=== PATIENT | male | born 1935 | race Caucasian/White ===

== ENCOUNTER → 2017-04-22 | Outpatient (CLI) | payer OTHER, BC ==
[~2017-04-22] MED LIST: ACIPHEX 20 MG T20 MG PO; ACTOS 30 MG TAB30 MG PO; ANTIVERT25 MG PO; BUTRANS1 EAC1 TD; FLOMAX PO; FLOMAX0.4 MG PO; JALYN 0.5-0.41 EACH PO; MECLIZINE HCL12.5 MG PO; MORPHINE SULFAT15 M3 PO; NEXIUM20 MG PO; NORCO 7.5-3251 EACH PO; TAMSULOSIN HCL0.4 MG PO; VITAMIN D3400 UNI2 PO; VITAMIN D400 UNI1 PO
== END ==
LOC: NUC 10:57
DX: R10.9 Unspecified abdominal pain (principal); R11.0 Nausea

== ENCOUNTER → 2017-08-20 | Outpatient (CLI) | payer OTHER, BC ==
[~2017-08-20] VITALS: Ht 167.6 cm; Wt 68.0 kg
[~2017-08-20] MED LIST changes: +CYMBALTA30 MG PO
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
[2017-08-20 12:43] VITALS: BP 104/57
== END | disposition home or self-care (01) ==
LOC: PAIN 07:08
DX: M47.26 Other spondylosis with radiculopathy, lumbar region (principal); M48.061 Spinal stenosis, lumbar region without neurogenic claudication; M47.894 Other spondylosis, thoracic region; E11.9 Type 2 diabetes mellitus without complications; K21.9 Gastro-esophageal reflux disease without esophagitis; F32.89 Other specified depressive episodes; Z79.891 Long term (current) use of opiate analgesic; Z98.890 Other specified postprocedural states; Z87.81 Personal history of (healed) traumatic fracture; Z85.828 Personal history of other malignant neoplasm of skin; Z87.891 Personal history of nicotine dependence

== ENCOUNTER → 2017-12-09 | Outpatient (CLI) | payer OTHER, BC ==
[~2017-12-09] VITALS: Ht 165.1 cm; Wt 62.6 kg
[~2017-12-09] MED LIST changes: +CEFDINIR300 MG PO; +CIPROFLOXIN HC2.5 M1 OPHTHALMIC; +PROTONIX 20 MG20 M1 PO; +STOOL SOFTENER100 MG PO; +TYLENOL325 M1 PO
--- NOTE | ~2017-12-09 | S ---
[facility] [place] [place] [address] SURGICAL PATH RPT PROCEDURE Name: MITTALOMAYRA Arreguin Room #: REG [facility] M.R.#: [id number] Admission: 12/09/17 Date of : 33 Discharge: Report #: [id number] Path Case #: [id number] PATHOLOGY REPORT COLLECTION DATE: 12/09/2017 RECEIVED DATE: 12/09/2017 SUBMITTING PHYS: Dr. Jimmy Portillo OTHER PHYS: Dr. Cristóbal Davalos SPECIMEN(S) RECEIVED: A.Gastritis * * * * * * * * * * * * FINAL DIAGNOSIS: "Gastritis", biopsy: - Gastric mucosa with mild chronic inactive gastritis and reactive changes including focal intestinal metaplasia; no dysplasia seen. - Negative H. pylori immunohistochemical stain (block A1); control reacted appropriately. (CLW:kiara; 12/10/2017) PATHOLOGIST: Dinorah Horvath M.D. REPORT ELECTRONICALLY SIGNED BY: Dinorah Horvath M.D. DATE/TIME: 12/10/2017 15:19 * * * * * * * * * * * * GROSS PATHOLOGY: Received in formalin labeled "Omayra Mittal, BX of gastritis," are 4 segments of kruse soft tissue measuring 1.5 x 0.6 x 0.2 cm in aggregate dimensions and ranging from 0.3 to 0.9 cm in maximum dimension. The specimen is submitted entirely in cassette A1. (TSD; 12/09/2017) CLINICAL HISTORY: Pre-OP DX: Nausea, abdominal pain Post-OP DX: Gastritis INITIAL CPT CODE(S): A; 29411, 67723 Professional services performed by [facility] at [facility] [address] , [place] [address] Technical services performed by [facility] at [address] [place] [address]. [facility] [address] [place] [address] SURGICAL PATH RPT PROCEDURE Name: OMAYRA MITTAL Room #: REG CLI Lg.#: [id number] Admission: 12/09/17 Date of : 33 Discharge: Report #: [id number] Path Case #: [id number] [place] [id number] [address] PHONE: [phone] DIRECTOR: Flaco Billy M.D. * * * END OF REPORT * * *
--- NOTE | ~2017-12-09 | P ---
[facility] [place] [address] PROCEDURE REPORT Name: OMAYRA MITTAL [id number] Admission: 12/09/17 Attend Phys: Jimmy Gleason Discharge: Date of : 33 Report #: [id number] THIS REPORT FOR: //name// CC: Jimmy Davalos MD DATE OF SERVICE: 12/09/2017 PROCEDURE PERFORMED: Upper endoscopy with biopsies. HISTORY OF PRESENT ILLNESS: The patient is an 82-year-old male with complaints of nausea and abdominal pain. Overall, he is a fair historian. Most of the history was obtained through his today. It appears that he has symptoms when he eats on a regular basis. He denies any vomiting. He does report some early satiety. He has had previous upper endoscopies by my partner, Dr. Cabrera in the past showing gastritis. Biopsies in the past were negative for H. pylori. He denies any dysphagia. He has had some weight loss recently. Plan is for upper endoscopy. The patient has also had been taking Nexium on a daily basis, which was not helpful. DESCRIPTION OF PROCEDURE: The risks and benefits of the procedure were explained to the patient, those risks including but not limited to bleeding, perforation, the risk of sedation. He understood these risks and gave informed consent. Sedation was given using propofol per anesthesia. Next, using a standard [employer] upper endoscope, the scope was placed in the patient's mouth and advanced under direct vision through the esophagus, stomach and into the second portion of the duodenum. The larynx was normal in appearance. The esophagus was normal throughout. The GE junction was normal. There was a moderate diffuse atrophic appearing gastritis throughout his entire stomach. Biopsies were obtained. There was no evidence of ulcerations or bleeding. The pylorus was normal and patent. The duodenal bulb, first and second portion were all normal. The scope was then withdrawn and the procedure terminated. The patient tolerated the procedure well. IMPRESSION: 1. Diffuse gastritis. 2. Otherwise, normal upper endoscopy. RECOMMENDATIONS: 1. Await biopsy results. 2. I had a long discussion with the patient's today. Would recommend initially trying Zofran with meals as it appears he is having more nausea, although it may be pain as well. If there is no improvement and biopsies are negative, we discussed proceeding with an ultrasound of the abdomen with mesenteric Dopplers to rule out the possibility of mesenteric stenosis. [address] [address] PROCEDURE REPORT Name: OMAYRA MITTAL Room #: REG CLI [facility].#: [id number] Admission: 12/09/17 Attend Phys: Jimmy Gleason Discharge: Date of : 33 Report #: [id number] Thank you for allowing me to participate in his care. <ELECTRONICALLY SIGNED> By: Jimmy Portillo MD 12/11/17 0808 1144 1823 Jimmy Portillo, /rivera
== END | disposition home or self-care (01) ==
LOC: GI 09:13
DX: K29.40 Chronic atrophic gastritis without bleeding (principal); E11.9 Type 2 diabetes mellitus without complications; F32.89 Other specified depressive episodes; Z87.891 Personal history of nicotine dependence; Z85.828 Personal history of other malignant neoplasm of skin; Z98.41 Cataract extraction status, right eye; Z98.42 Cataract extraction status, left eye; Z96.1 Presence of intraocular lens; Z98.890 Other specified postprocedural states; Z90.49 Acquired absence of other specified parts of digestive tract; Z79.891 Long term (current) use of opiate analgesic
CPT/HCPCS: 62110; 62900

== ENCOUNTER 2018-01-04 16:29 | Inpatient (IN) | payer OTHER, BC ==
[~2018-01-04] VITALS: Ht 175.3 cm; Wt 60.7 kg
--- NOTE | ~2018-01-04 | EKG ---
[place] [address] [facility] [place] [address] ELECTROCARDIOGRAM REPORT Name: MITTALOMAYRA Arreguin Room #: 444-P ADM IN M.R.#: [id number] Admission: 01/04/18 Attend Phys: Cristóbal Davalos MD Discharge: Date of : 33 Report #: [id number] THIS REPORT FOR: //name// [facility] ED Test Date: 2018-01-04 Test Time: 17:27:19 Pat Name: OMAYRA MITTAL Department: Room: 444 Gender: M Health Insurance Assessor: MZOOK : 1935 Requested By: Marjorie Tee Order Number: [id number] MD: Rell Ennis Measurements Intervals [place] Rate: 83 P: 16 RI: 153 QRS: -30 QRSD: 99 T: 8 QT: 388 QTc: 456 Interpretive Statements Sinus rhythm Left axis deviation Right bundle branch block Compared to ECG 05/22/2014 09:45:51 Left-axis deviation now present Electronically Signed On 01-05-2018 7:18:49 EQUIPMENT MAINTENANCE ENGINEER by Rell Ennis [email or web address] <ELECTRONICALLY SIGNED> By: Rell Ennis MD, [facility] 01/05/18 0718 172 172 Rell Ennis MD, [facility] /EPI
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
--- NOTE | ~2018-01-04 | EKG ---
[place] [address] [facility] [place] [address] ELECTROCARDIOGRAM REPORT Name: OMAYRA MITTAL Room #: 444-P ADM IN M.R.#: [id number] Admission: 01/04/18 Attend Phys: Cristóbal Davalos MD Discharge: Date of : 33 Report #: [id number] THIS REPORT FOR: //name// [facility] ED Test Date: 2018-01-04 Test Time: 19:01:02 Pat Name: OMAYRA MITTAL Department: Room: 444 Gender: M Ice Rink Attendant: MZOOK : 1935 Requested By: Marjorie Tee Order Number: [id number] MD: Rell Ennis Measurements Intervals [place] Rate: 80 P: 0 [place]: 152 QRS: -45 QRSD: 138 T: -1 QT: 396 QTc: 457 Interpretive Statements Sinus rhythm Leftward axis Right bundle branch block Compared to ECG 05/22/2014 09:45:51 No significant changes Electronically Signed On 01-05-2018 7:21:13 SYNCHRONIZER by Rell Ennis [email or web address] <ELECTRONICALLY SIGNED> By: Rell Ennis MD, [facility] 01/05/18 0721 190 00 Rell Ennis MD, [facility] /EPI
[~2018-01-04 16:29] MED LIST changes: -CEFDINIR300 MG PO; -CIPROFLOXIN HC2.5 M1 OPHTHALMIC; -PROTONIX 20 MG20 M1 PO; -TYLENOL325 M1 PO
[2018-01-04 16:30] VITALS: BP 132/54
[2018-01-04 17:59] LABS: HEMATOCRIT 39.3 % (42.0-52.0); HEMOGLOBIN 13.5 gm/dL (14.0-18.0); MCH 34.9 pg (26.0-34.0); MCHC 34.3 g/dL (28.0-37.0); MCV 101.6 fL (80.0-100.0); PLATELET COUNT 224 thou/uL (150-400); RBC 3.86 mil/uL (4.50-6.00); RDW 12.6 % (10.5-14.5); WBC 25.8 thou/uL (4.0-11.0)
[2018-01-04 18:09] LABS: CALCIUM 10.4 mg/dL (8.5-10.1); CREATININE 0.8 mg/dL (0.7-1.3); POTASSIUM 4.6 mmol/L (3.5-5.1)
[2018-01-04 18:16] LABS: ABSOLUTE NEUTROPHILS 22.4 thou/uL (1.4-8.2)
[2018-01-04 18:33] LABS: URINE BILIRUBIN 1+ (Negative); URINE BLOOD 3+ (Negative); URINE CLARITY CLEAR; URINE COLOR YELLOW; URINE GLUCOSE-RANDOM* TRACE (Negative); URINE KETONES 2+ (Negative); URINE LEUKOCYTES-REFLEX NEGATIVE (Negative); URINE NITRITE-REFLEX NEGATIVE (Negative); URINE PROTEIN (DIPSTICK) TRACE (Negative); URINE SPECIFIC GRAVITY 1.025 (1.005-1.035); URINE UROBILINOGEN 0.2 E.U./dl (0.2-1.0)
[2018-01-04 18:39] LABS: ICTOTEST (BILI CONFIRMATORY) Negative (Negative)
[2018-01-04 18:48] LABS: BACTERIA-REFLEX None Seen /HPF (None Seen); CASTS None Seen /LPF (None Seen); SQUAMOUS 0-3 Few /LPF (0-3)
[2018-01-04 18:49] LABS: CRYSTALS None Seen /LPF (None Seen); MUCUS 4-6 Moderate strn/LPF (None Seen); URINE WBC-REFLEX None Seen /HPF (0-5)
[2018-01-05 00:28] VITALS: BP 114/64
[2018-01-05 00:55] VITALS: BP 112/45
[2018-01-05 04:55] VITALS: BP 95/49
[2018-01-05 07:54] VITALS: BP 107/44
[2018-01-05 08:17] LABS: HEMATOCRIT 32.3 % (42.0-52.0); HEMOGLOBIN 10.9 gm/dL (14.0-18.0); MCH 34.5 pg (26.0-34.0); MCHC 33.8 g/dL (28.0-37.0); RBC 3.16 mil/uL (4.50-6.00); RDW 12.3 % (10.5-14.5); WBC 16.9 thou/uL (4.0-11.0)
[2018-01-05 08:29] LABS: CALCIUM 9.1 mg/dL (8.5-10.1); CREATININE 0.7 mg/dL (0.7-1.3)
[2018-01-05 08:31] LABS: POTASSIUM 3.2 mmol/L (3.5-5.1)
[2018-01-05 15:54] VITALS: BP 103/54
[2018-01-05 21:06] VITALS: BP 107/52
[2018-01-06 04:00] VITALS: BP 135/57
[2018-01-06] MEDS ORDERED: CIPROFLOXIN HC2.5 M1 OPHTHALMIC (07:39)
[2018-01-06] MEDS ORDERED: CEFDINIR300 MG PO (07:40)
[2018-01-06 07:57] LABS: HEMATOCRIT 31.1 % (42.0-52.0); HEMOGLOBIN 10.6 gm/dL (14.0-18.0); MCHC 34.2 g/dL (28.0-37.0); MCV 102.5 fL (80.0-100.0); RBC 3.04 mil/uL (4.50-6.00); RDW 12.7 % (10.5-14.5); WBC 11.3 thou/uL (4.0-11.0)
[2018-01-06 08:00] VITALS: BP 113/48
[2018-01-06 08:05] LABS: CALCIUM 8.3 mg/dL (8.5-10.1); CREATININE 0.7 mg/dL (0.7-1.3); POTASSIUM 3.4 mmol/L (3.5-5.1)
[2018-01-06 15:28] VITALS: BP 113/48
[2018-01-06 16:44] VITALS: BP 132/71
[2018-01-06 22:48] VITALS: BP 127/56
[2018-01-07 04:42] VITALS: BP 130/60
[2018-01-07 08:00] VITALS: BP 119/94
[2018-01-07] MEDS ORDERED: CEFDINIR300 MG PO (13:01)
[2018-01-07 15:56] VITALS: BP 149/59
[2018-01-08 04:14] VITALS: BP 154/63
[2018-01-08 08:00] VITALS: BP 160/52
[2018-01-08 10:07] LABS: HEMATOCRIT 34.4 % (42.0-52.0); HEMOGLOBIN 11.7 gm/dL (14.0-18.0); MCH 34.7 pg (26.0-34.0); MCHC 33.9 g/dL (28.0-37.0); MCV 102.4 fL (80.0-100.0); RBC 3.36 mil/uL (4.50-6.00); RDW 12.5 % (10.5-14.5); WBC 9.1 thou/uL (4.0-11.0)
[2018-01-08 10:33] LABS: CALCIUM 8.9 mg/dL (8.5-10.1); CREATININE 0.7 mg/dL (0.7-1.3); POTASSIUM 3.7 mmol/L (3.5-5.1)
== END 2018-01-08 17:35 | DRG 871 ==
LOC: ER 16:29 → EROBS 20:14 → 4S 20:14
PROVIDERS: Emergency Medicine; Family Medicine
DX: A41.9 Sepsis, unspecified organism (principal); G92 Toxic encephalopathy; N17.9 Acute kidney failure, unspecified; N39.0 Urinary tract infection, site not specified; M62.82 Rhabdomyolysis; E11.9 Type 2 diabetes mellitus without complications; K21.9 Gastro-esophageal reflux disease without esophagitis; F32.9 Major depressive disorder, single episode, unspecified; E86.0 Dehydration; R33.9 Retention of urine, unspecified; G89.29 Other chronic pain; D72.829 Elevated white blood cell count, unspecified; F03.90 Unspecified dementia, unspecified severity, without behavioral disturbance, psychotic disturbance, mood disturbance, and anxiety; Z87.81 Personal history of (healed) traumatic fracture; Z79.899 Other long term (current) drug therapy; Z98.42 Cataract extraction status, left eye; Z98.41 Cataract extraction status, right eye; Z90.49 Acquired absence of other specified parts of digestive tract; W18.39XA Other fall on same level, initial encounter; Y93.89 Activity, other specified; Y92.89 Other specified places as the place of occurrence of the external cause; Y99.8 Other external cause status
CPT/HCPCS: 10100

== ENCOUNTER 2018-08-19 14:54 | Emergency (ER) | payer OTHER, BC ==
[~2018-08-19] VITALS: Ht 167.6 cm; Wt 75.8 kg
--- NOTE | ~2018-08-19 | EKG ---
[address] [address] ELECTROCARDIOGRAM REPORT Name: MITTALOMAYRA LOPEZ Room #: [facility] [id number] Admission: 08/19/18 Attend Phys: Discharge: 08/19/18 Date of : 33 Report #: [id number] THIS REPORT FOR: //name// [facility] ED Test Date: 2018-08-19 Test Time: 16:07:41 Pat Name: OMAYRA MITTAL Department: Room: Gender: M Shaper Operator: EH : 1935 Requested By: Baudilio Qiu Order Number: [id number] MD: Charles Garcia Measurements Intervals [place] Rate: 68 P: 34 [place]: 162 QRS: -58 QRSD: 136 T: 11 QT: 438 QTc: 466 Interpretive Statements Sinus rhythm Multiple premature complexes, vent & supraven RBBB and LAFB Compared to ECG 01/04/2018 19:01:02 Left anterior fascicular block now present Left-axis deviation no longer present Electronically Signed On 08-20-2018 8:19:10 CDT by Charles Garcia [email or web address] <ELECTRONICALLY SIGNED> By: Charles Garcia MD 08/20/18 0819 1607 1607 Charles Garcia MD /EPI
[~2018-08-19 14:54] MED LIST changes: +CEFDINIR300 MG PO; +CIPROFLOXIN HC2.5 M1 OPHTHALMIC
[2018-08-19] MEDS ORDERED: TYLENOL325 M1 PO (15:14)
[2018-08-19 15:20] LABS: ABSOLUTE NEUTROPHILS 11.4 thou/uL (1.4-8.2); BASOPHILS 0.3 % (0.0-2.0); HEMATOCRIT 40.4 % (42.0-52.0); HEMOGLOBIN 13.9 gm/dL (14.0-18.0); LYMPHOCYTES 13.7 % (24.0-44.0); MCH 35.8 pg (26.0-34.0); MCHC 34.3 g/dL (28.0-37.0); MCV 104.2 fL (80.0-100.0); MONOCYTES 7.8 % (1.0-8.0); PLATELET COUNT 275 thou/uL (150-400); POLYS 78.2 % (36.0-66.0); RBC 3.87 mil/uL (4.50-6.00); RDW 12.9 % (10.5-14.5); WBC 14.5 thou/uL (4.0-11.0)
[2018-08-19 16:28] LABS: CALCIUM 9.9 mg/dL (8.5-10.1); POTASSIUM 3.9 mmol/L (3.5-5.1)
[2018-08-19 16:33] LABS: ALBUMIN 3.9 g/dL (3.4-5.0); TOTAL BILIRUBIN 0.7 mg/dL (<0.1-1.0); TOTAL PROTEIN 7.8 g/dL (6.4-8.2)
[2018-08-19 17:59] LABS: URINE BILIRUBIN NEGATIVE (Negative); URINE BLOOD NEGATIVE (Negative); URINE CLARITY CLEAR; URINE COLOR YELLOW; URINE GLUCOSE-RANDOM* NEGATIVE (Negative); URINE KETONES 1+ (Negative); URINE LEUKOCYTES-REFLEX NEGATIVE (Negative); URINE NITRITE-REFLEX NEGATIVE (Negative); URINE PROTEIN (DIPSTICK) NEGATIVE (Negative); URINE SPECIFIC GRAVITY <= 1.005 (1.005-1.035); URINE UROBILINOGEN 0.2 E.U./dl (0.2-1.0)
[2018-08-19] MEDS ORDERED: PROTONIX 20 MG20 M1 PO (18:37)
== END 2018-08-19 19:09 ==
LOC: ER 14:54
PROVIDERS: Emergency Medicine
DX: R10.13 Epigastric pain (principal); R05 Cough; E11.9 Type 2 diabetes mellitus without complications; Z87.440 Personal history of urinary (tract) infections; Z90.49 Acquired absence of other specified parts of digestive tract

== ENCOUNTER 2019-04-07 16:47 | Inpatient (IN) | payer OTHER, BC ==
[~2019-04-07] VITALS: Ht 165.1 cm; Wt 66.8 kg
[~2019-04-07 16:47] MED LIST changes: +PROTONIX 20 MG20 M1 PO; +TYLENOL325 M1 PO
[2019-04-07 17:32] LABS: URINE BILIRUBIN NEGATIVE (Negative); URINE BLOOD NEGATIVE (Negative); URINE CLARITY CLEAR; URINE COLOR YELLOW; URINE GLUCOSE-RANDOM* TRACE (Negative); URINE KETONES NEGATIVE (Negative); URINE LEUKOCYTES-REFLEX NEGATIVE (Negative); URINE NITRITE-REFLEX NEGATIVE (Negative); URINE PROTEIN (DIPSTICK) NEGATIVE (Negative); URINE SPECIFIC GRAVITY 1.025 (1.005-1.035); URINE UROBILINOGEN 0.2 E.U./dl (0.2-1.0)
[2019-04-07 17:39] LABS: AMP/METHAMP Negative (Negative); BARBITURATES Negative (Negative); BENZODIAZEPINES Negative (Negative); COCAINE Negative (Negative); METHADONE Negative (Negative); OPIATES Negative (Negative); PCP Negative (Negative)
[2019-04-07 17:44] LABS: ABSOLUTE NEUTROPHILS 9.3 thou/uL (1.4-8.2); BASOPHILS 0.4 % (0.0-2.0); EOSINOPHILS 0.4 % (0.0-3.0); HEMATOCRIT 39.6 % (42.0-52.0); HEMOGLOBIN 13.1 gm/dL (14.0-18.0); LYMPHOCYTES 18.5 % (24.0-44.0); MCH 34.4 pg (26.0-34.0); MCHC 33.2 g/dL (28.0-37.0); MCV 103.7 fL (80.0-100.0); PLATELET COUNT 252 thou/uL (150-400); POLYS 73.7 % (36.0-66.0); RBC 3.81 mil/uL (4.50-6.00); RDW 13.4 % (10.5-14.5); WBC 12.6 thou/uL (4.0-11.0)
[2019-04-07 17:58] LABS: APTT 25.4 Seconds (24.5-32.8); INR 1.1
[2019-04-07 18:46] LABS: ANION GAP 6 mmol/L (7-16); BUN 23 mg/dL (7-18); CALCIUM 9.5 mg/dL (8.5-10.1); CHLORIDE 103 mmol/L (98-107); CO2 30 mmol/L (21-32); CREATININE 0.7 mg/dL (0.7-1.3); GLUCOSE 111 mg/dL (74-106); POTASSIUM 3.8 mmol/L (3.5-5.1); SODIUM 139 mmol/L (136-145); TROPONIN-I <0.06 ng/mL (<0.06)
[2019-04-07 22:49] VITALS: BP 116/63
[2019-04-07 23:00] VITALS: BP 124/52
[2019-04-07 23:28] VITALS: BP 145/54
[2019-04-08 05:19] VITALS: BP 141/59
[2019-04-08 08:17] LABS: HEMATOCRIT 37.4 % (42.0-52.0); HEMOGLOBIN 12.5 gm/dL (14.0-18.0); MCH 34.8 pg (26.0-34.0); MCHC 33.5 g/dL (28.0-37.0); RBC 3.6 mil/uL (4.50-6.00); RDW 13.3 % (10.5-14.5); WBC 11.1 thou/uL (4.0-11.0)
[2019-04-08 08:27] LABS: ALBUMIN 3.5 g/dL (3.4-5.0); CALCIUM 8.5 mg/dL (8.5-10.1); CREATININE 0.6 mg/dL (0.7-1.3); POTASSIUM 3.6 mmol/L (3.5-5.1); TOTAL BILIRUBIN 1.7 mg/dL (<0.1-1.0); TOTAL PROTEIN 6.8 g/dL (6.4-8.2)
--- NOTE | 2019-04-08 09:31 | EKG ---
[place] [address] [facility] [place] [address] ELECTROCARDIOGRAM REPORT Name: SUREKHA MITTALCARLO ARREDONDO Room #: 219-P ADM IN M.R.#: [id number] ������������������ Admission: 04/07/19 ������������������ Attend Phys: Cristóbal Davalos MD Discharge: ������������������ Date of : 33 Report #: [id number] ����������������������������������������������������������������� [id number] THIS REPORT FOR: //name// [facility] ED Test Date: 2019-04-07 Test Time: 18:01:47 Pat Name: OMAYRA MITTAL Department: Room: 219 Gender: M Teacher Of The Sight Impaired: LOU : 1935 Requested By: Baudilio Qiu Order Number: [id number] MD: Rell Ennis Measurements Intervals [place] Rate: 74 P: 0 [place]: 150 QRS: -78 QRSD: 136 T: 5 QT: 421 QTc: 467 Interpretive Statements Sinus rhythm RBBB and LAFB Compared to ECG 08/19/2018 16:07:41 Premature ventricular complexes are no longer present Electronically Signed On 04-08-2019 9:31:05 CDT by Rell Ennis [email or web address] ��������������������������������������������� <ELECTRONICALLY SIGNED> ���������������������������������������� By: Rell Ennis MD, [facility] ��������������������������������������������� 04/08/19 0931 180 00 Rell Ennis MD, [facility] /EPI
--- NOTE | 2019-04-08 14:16 | 2DMMODE ---
[facility] [place] [address] 2 D/M-MODE ECHOCARDIOGRAM Name: MITTAL,OMAYRACARLO ARREDONDO Room #: 219-P ADM IN M.R.#: [id number] ������������� Admission: 04/07/19 ������������� Attend Phys: Cristóbal Davalos, Discharge: ��� ������������� ��� Date of : 31 Date of Service: 04/08/19 1416 �� Report #: [id number] �������� ��������������������������������������������[id number] THIS REPORT FOR: //name// APPROVED REPORT Study performed: 04/08/2019 12:58:11 EXAM: Comprehensive 2D, Doppler, and color-flow Echocardiogram Patient Location: Bedside Room #: 219 Status: routine BSA: 1.73 HR: 76 bpm BP: 141/59 mmHg Rhythm: NSR Other Information Study Quality: Adequate Indications Altered mental status. Echo Enhancing Agent Indication: Rule out Shunt Agent(s) / Amount(s) Used: Agitated Saline 6 cc 2D Dimensions RVDd: 32.49 mm IVSd: 10.30 (7-11mm) LVOT Diam: 21.42 (18-24mm) LVDd: 41.48 mm PWd: 9.93 (7-11mm) Ascending Ao: 35.15 (22-36mm) LVDs: 25.65 (25-40mm) Aortic Root: 37.17 mm Volumes Left Atrial Volume (Systole) Single Plane 4CH: 52.96 mL Single Plane 2CH: 55.98 mL LA ESV Index: 35.00 mL/m2 Aortic Valve AoV Peak Bassem.: 1.65 m/s AO Peak Gr.: 10.84 mmHg LVOT Max P.46 mmHg LVOT Max V: 1.06 m/s MIMA Vmax: 2.31 cm2 [facility] [place] [address] [place] [address] 2 D/M-MODE ECHOCARDIOGRAM Name: OMAYRA MITTAL Room #: 219-P [facility] IN ..#: [id number] ������������� Admission: 04/07/19 ������������� Attend Phys: Cristóbal Davalos, Discharge: ��� ������������� ��� Date of : 31 Date of Service: 04/08/19 1416 �� Report #: [id number] �������� ��������������������������������������������[id number] Mitral Valve E/A Ratio: 0.6 MV Decel. Time: 237.11 ms MV E Max Bassem.: 0.82 m/s MV A Bassem.: 1.33 m/s MV PHT: 68.76 ms IVRT: 72.66 ms Pulmonary Valve PV Peak Bassem.: 0.96 m/s PV Peak Gr.: 3.69 mmHg Pulmonary Vein P Vein S: 0.62 m/s P Vein A: 0.34 m/s P Vein D: 0.33 m/s P Vein A Dur.: 107.3 msec P Vein S/D Ratio: 1.88 Tricuspid Valve TR Peak Bassem.: 1.84 m/s TR Peak Gr.: 13.48 mmHg Left Ventricle The left ventricle is normal size. There is normal LV segmental wall motion. There is normal left ventricular wall thickness. Left ventricular systolic function is normal. LVEF is 60-65%. Mild diastolic dysfunction is present (impaired relaxation pattern). Right Ventricle The right ventricle is normal size. The right ventricular systolic function is normal. Atria Left atrium is at the upper limits of normal. Positive bubble study for PFO/ASD. Contrast bubble injection showed right to left shunting. The right atrium size is normal. Aortic Valve Aortic valve is trileaflet, mildly thickened and calcified. Mild aortic regurgitation. There is no aortic valvular stenosis. Mitral Valve Mitral valve leaflets are mildly calcified. There is no mitral valve regurgitation noted. No evidence of mitral valve stenosis. Tricuspid Valve The tricuspid valve is normal in structure. Trace tricuspid [facility] [address] [place] [address] 2 D/M-MODE ECHOCARDIOGRAM Name: OMAYRA MITTAL MARIA ELENA Room #: 219-P [facility] IN [facility].#: [id number] ������������� Admission: 04/07/19 ������������� Attend Phys: Cristóbal Davalos, Discharge: ��� ������������� ��� Date of : 31 Date of Service: 04/08/19 1416 �� Report #: [id number] �������� ��������������������������������������������[id number] regurgitation. Estimated PAP is 15mmHg. Pulmonic Valve The pulmonary valve is normal in structure. Trace pulmonic regurgitation. Great Vessels The aortic root is normal in size. The ascending aorta is normal in size. IVC is normal in size and collapses >50% with inspiration. Pericardium There is no pericardial effusion. <Conclusion> The left ventricle is normal size. LVEF is 60-65%. Left atrium is at the upper limits of normal. The right atrium size is normal. Aortic valve is trileaflet, mildly thickened and calcified. Mild aortic regurgitation. Mitral valve leaflets are mildly calcified. The tricuspid valve is normal in structure. Trace tricuspid regurgitation. Estimated PAP is 15mmHg. There is no pericardial effusion. ��������������������������������������������� <ELECTRONICALLY SIGNED> ���������������������������������������� By: Isidro Bolaños MD ��������������������������������������������� 04/08/19 1416 1416 1416 Isidro Bolaños MD /INF
[2019-04-08 20:28] VITALS: BP 131/53
[2019-04-09 03:16] VITALS: BP 151/65
[2019-04-09 12:37] VITALS: BP 127/65
[2019-04-09 16:26] VITALS: BP 131/73
--- NOTE | 2019-04-09 16:31 | HC ---
[facility] [place] [address] CONSULTATION Name: OMAYRA MITTAL Room #: 219-P ADM IN M.R.#: [id number] Admission: 04/07/19 ������������������ Attend Phys: Cristóbal Davalos MD Discharge: ������������������ Date of : 33 Report #: [id number] THIS REPORT FOR: //name// CC: Cristóbal Davalos HISTORY OF PRESENT ILLNESS: The patient is an 84-year-old male who was brought to the hospital because according to his , he seemed more confused than usual. When he came to the Emergency Room, he seemed unable to use his right hand. When he went to reach out for something, it seemed to just be floating in the air. The patient was supposed to see the nurse practitioner, but she referred the patient to the Emergency Room for stroke workup. His has also noticed that he seems to be having some difficulty with word finding for the past week. His tells me he does not take aspirin as this bothers his stomach. PAST MEDICAL HISTORY: Diabetes. PAST SURGICAL HISTORY: Arthroscopy, bilateral cataracts with lens implants, tonsillectomy, right rotator cuff repair, vertebroplasty removal of melanoma, cholecystectomy. MEDICATIONS: At home Actos 15 mg at bedtime, Tylenol as needed for pain. ALLERGIES: None. VITAL SIGNS: Temperature 36.5, pulse rate 76, respiratory rate 16, blood pressure 141/59, bedside pulse oximetry 94% on room air. LABORATORY DATA: Hematology: White blood cell count 11.1, hemoglobin 12.5, hematocrit 37.4, MCV 104, platelet count 227,000. Urinalysis unremarkable. Chemistry: Sodium 139, potassium 3.6, chloride 105, carbon dioxide 28, BUN 12, creatinine 0.6, GFR 128, glucose 148, calcium 8.5. Liver functions unremarkable. Ammonia level 25. TSH 1.356. Drug screen negative. IMAGING: CT scan of the head demonstrates no acute intracranial process. MRI of the head demonstrates an acute infarct in the left postcentral gyrus and in the left paramedian occipital lobe. The patient also has diffuse periventricular white matter disease. With these 2 acute strokes, hemosiderin and blood products were noted. NEUROLOGIC: Cranial nerves 2-12 are grossly intact. Motor exam demonstrates symmetrical strength in all 4 extremities with tone and bulk normal. Reflexes are trace. Plantar responses are flexor bilaterally. Coordination reveals no evidence of dysmetria. Sensory exam, double simultaneous stimulation was questionable. The patient at first appeared to have extinction in the right upper extremity, but this was not consistent. [address] [address] CONSULTATION Name: OMAYRA MITTAL Room #: 219-P [facility] IN .R.#: [id number] Admission: 04/07/19 ������������������ Attend Phys: Cristóbal Davalos MD Discharge: ������������������ Date of : 33 Report #: [id number] IMPRESSION: This patient has had a stroke, has had two strokes involving the left hemisphere. The carotid ultrasound is unremarkable. I have ordered an MRA of the head and neck. He has an echocardiogram pending. I have also ordered a B12. His MCV is elevated. The patient will need physical and occupational therapy as well. The patient did have an electroencephalogram. There is no evidence of seizure activity. Eventually, this patient will need to be on some type of antiplatelet therapy unless there is something significant on the echocardiogram. Perhaps in a week or so, he could begin a trial of Plavix. His tells me he cannot take aspirin. I thank you for your kind referral of the patient. We will continue to follow him with you. ��������������������������������������������� <ELECTRONICALLY SIGNED> ���������������������������������������� By: Danielle Antunez DO ��������������������������������������������� 04/09/19 1631 1133 [id number] Danielle Antunez DO /nt
--- NOTE | 2019-04-09 16:32 | EEG ---
[facility] [place] [address] ELECTROENCEPHALOGRAM Name: OMAYRA MITTAL Room #: 219-P ADM IN M.R.#: [id number] ������������������ Admission: 04/07/19 ������������������ Attend Phys: Cristóbal Davalos MD Discharge: ������������������ Date of : 33 Report #: [id number] ����������������������������������������������������������������� [id number] THIS REPORT FOR: //name// CC: Cristóbal Davalos HISTORY: The patient is an 84-year-old male with altered consciousness and confusion. An EEG is requested for further evaluation. DESCRIPTION: The awake record consists of poorly formed 8 Hz posterior dominant rhythm, which attenuates with eye opening. Beta activity in the form of low amplitude 20-25 cycles per second activity was seen during the recording and predominant over the frontocentral head regions. Stage I sleep was characterized by attenuation of the background record. Photic stimulation was not activating. No focal abnormalities or epileptiform discharges were noted. IMPRESSION: This is essentially normal adult awake to stage I sleep record. No focal abnormalities or epileptiform discharges are noted. ���������������������������������������� <ELECTRONICALLY SIGNED> ���������������������������������������� By: Danielle Antunez DO ��������������������������������������������� 04/09/19 1632 [id number] Danielle Antunez DO /nt
[2019-04-09 17:13] LABS: CHOLESTEROL 155 mg/dL (<200); HDL CHOLESTEROL 44 mg/dL (>40); LDL CHOLESTEROL 95 mg/dL (<100); TC:HDL 3.5 Ratio (Not establshd); TRIGLYCERIDE 83 mg/dL (<150); VLDL 17 mg/dL (<40)
[2019-04-09 20:12] VITALS: BP 131/62
[2019-04-10 05:00] VITALS: BP 136/62
[2019-04-10 07:37] VITALS: BP 126/57
[2019-04-10 11:41] VITALS: BP 114/62
[2019-04-10 20:19] VITALS: BP 130/69
[2019-04-11 05:33] VITALS: BP 144/62
[2019-04-11 08:25] VITALS: BP 130/67
[2019-04-11 12:51] VITALS: BP 119/63
[2019-04-11] MEDS ORDERED: ATORVASTATIN CA40 MG PO (15:45)
[2019-04-11] MEDS ORDERED: ASA5UEC PO (15:45)
[2019-04-11] MEDS ORDERED: SERTRALINE HCL50 MG PO (15:46)
[2019-04-11] MEDS ORDERED: LIDOPATCH1 EACH TRANSDERM (15:46)
[2019-04-12] MEDS ORDERED: PIOGLITAZONE15 MG (10:06)
== END 2019-04-11 16:42 | DRG 64 ==
LOC: ER 16:47 → EROBS 19:21 → 2N 19:21
PROVIDERS: Emergency Medicine; Psychiatry & Neurology Neurology; ADMIT Family Medicine
DX: I63.9 Cerebral infarction, unspecified (principal); G93.41 Metabolic encephalopathy; I10 Essential (primary) hypertension; E11.65 Type 2 diabetes mellitus with hyperglycemia; Z90.49 Acquired absence of other specified parts of digestive tract; Z79.2 Long term (current) use of antibiotics; Z79.899 Other long term (current) drug therapy
CPT/HCPCS: 10081

== ENCOUNTER 2019-04-11 15:11 | Inpatient (IN) | payer OTHER, BC ==
[~2019-04-11] VITALS: Ht 167.6 cm; Wt 66.2 kg
[2019-04-11] MEDS ORDERED: ATORVASTATIN CA40 MG PO (15:45)
[2019-04-11] MEDS ORDERED: ASA5UEC PO (15:45)
[2019-04-11] MEDS ORDERED: SERTRALINE HCL50 MG PO (15:46)
[2019-04-11] MEDS ORDERED: LIDOPATCH1 EACH TRANSDERM (15:46)
[2019-04-11 17:00] VITALS: BP 126/59
--- NOTE | 2019-04-11 18:38 | NUR ---
REPORT RECEIVED FROM NURSE AT 1500 AND PATIENT BROUGHT TO UNIT AT 1700. PATIENT IS A&O TO PERSON AND PLACE AND VITAL SIGNS ARE STABLE. FAMILY IS AT THE BEDSIDE. ADMISSION ASSESSMENT PERFORMED, ADMISSION PAPERWORK ON CHART NEEDS TO BE SIGNED. BLOOD GLUCOSE OBTAINED. ORDERS FOR PAIN MEDICAITON OBTAINED. PATIENT ORIENTED TO THE UNIT. FALL PRECAUTIONS IN PLACE AND NURSING WILL CONTINUE TO MONITOR PATIENT.
[2019-04-11 19:29] VITALS: BP 115/50
--- NOTE | 2019-04-12 00:59 | NUR ---
PT ALERT AND ORIENTED X 2. SITS UP IN BED FREQUENTLY SETTING OFF ALARM. USES URINAL SITTING ON SIDE OF BED. REQUIRED COMPLETE LINEN CHANGE, UNSURE IF INCONT OR SPILLED URINAL. PT HAS DENIED PAIN SO FAR TONIGHT. BED ALARM ON FOR SAFETY. PT CHECKED ON HOURLY ROUNDS.
[2019-04-12 06:12] LABS: HEMATOCRIT 37.8 % (42.0-52.0); HEMOGLOBIN 12.7 gm/dL (14.0-18.0); MCH 35.1 pg (26.0-34.0); MCHC 33.5 g/dL (28.0-37.0); MCV 104.6 fL (80.0-100.0); RBC 3.61 mil/uL (4.50-6.00); RDW 13.2 % (10.5-14.5); WBC 14.1 thou/uL (4.0-11.0)
[2019-04-12 06:13] LABS: CALCIUM 9.1 mg/dL (8.5-10.1); CREATININE 0.8 mg/dL (0.7-1.3); POTASSIUM 3.9 mmol/L (3.5-5.1)
[2019-04-12 07:30] VITALS: BP 122/45
--- NOTE | 2019-04-12 09:58 | NUR ---
ASSUMED PT CARE AT 0700. VSS ON RA. PT ALERT AND ORIENTED X3 FORGETFUL. REPORTS HE DIDN'T SLEEP AT ALL LAST NIGHT. WBC 14.1. NIGHT NURSE SAID PT URINATED FREQUENTLY LAST NIGHT. UA CONCENTRATED. DR. OLIVARES CAME TO SEE PT THIS AM. ORDERED FOR TRAZODONE, UA, VOLATERENE GEL FOR BACK PAIN. OFFERED SUPPORTIVE CARE. ENCOURAGED PT TO VOICE HIS NEEDS. PT C/O BACK PAIN. REASSESSMENT PER CHART. GIVE AM AND PRN HYDROCODONE BEFORE THERAPY. PT SAID PT CAN BE UP WITH MOD ASSIST PIVOT TO CHAIR<>BED. FALL PRECAUTION IN PLACE. CALL LIGHT WITHIN REACH. HIS GOALS TODAY ARE BATH, WALKING, AND SHAVING.CHECK FREQUENTLY FOR NEEDS AND SAFETY. PT IS TIRED, RESTING IN BED UNTIL NEXT THERAPY. WILL CONTINUE TO MONITOR.
[2019-04-12] MEDS ORDERED: PIOGLITAZONE15 MG (10:06)
[2019-04-12 11:42] LABS: URINE BILIRUBIN NEGATIVE (Negative); URINE BLOOD TRACE (Negative); URINE CLARITY CLEAR; URINE COLOR YELLOW; URINE GLUCOSE-RANDOM* 1+ (Negative); URINE KETONES NEGATIVE (Negative); URINE LEUKOCYTES-REFLEX NEGATIVE (Negative); URINE NITRITE-REFLEX NEGATIVE (Negative); URINE PROTEIN (DIPSTICK) NEGATIVE (Negative); URINE SPECIFIC GRAVITY 1.025 (1.005-1.035); URINE UROBILINOGEN 0.2 E.U./dl (0.2-1.0)
--- NOTE | 2019-04-12 12:38 | NUR ---
team meeting, recommendation: doors closed when up in wheel chair on unite. re team, found out if family can bring own wheel chair in for carol to work with therapy if family able. will cont following as needed for dc needs.
[2019-04-12 19:20] VITALS: BP 128/50
--- NOTE | 2019-04-13 01:28 | NUR ---
PT ALERT AND ORIENTED X 2. C/O PAIN IN HIS BACK. HYDROCODONE GIVEN AT HS. STARTED ON TRAZADONE FOR SLEEP. BED ALARM ON FOR SAFETY. PT APPEARS TO BE SLEEPING ON HOURLY ROUNDS.
[2019-04-13 06:22] LABS: HEMATOCRIT 36.3 % (42.0-52.0); HEMOGLOBIN 12.1 gm/dL (14.0-18.0); MCH 34.7 pg (26.0-34.0); MCHC 33.2 g/dL (28.0-37.0); MCV 104.3 fL (80.0-100.0); RBC 3.48 mil/uL (4.50-6.00); RDW 13.2 % (10.5-14.5)
[2019-04-13 08:33] VITALS: BP 150/66
--- NOTE | 2019-04-13 11:36 | NUR ---
ASSUMED CARES AT 0700. PT AWAKE, ORIENTED TO SELF, PLACE AND SOMETIMES TIME. CONFUSED AND FORGETFUL. C/O PAIN IN LOW BACK, PAIN MEDICATION ADMINISTERED. VITALS REMAIN STABLE. SKIN REMAINS INTACT. PT UP WITH MIN ASSIST, GAITBELT AND WALKER AND TOLERATED WELL. TOLERATED ALL THERAPIES, C/O BLE WEAKNESS AND FATIGUE WITH ACTIVITY. Q1H VISUAL CHECKS. CALL LIGHT WITHIN REACH. FALL PRECAUTIONS IN PLACE
--- NOTE | 2019-04-13 15:24 | NUR ---
Patient participated in community reintegration on 04/13/19 with OCCUPATIONAL THERAPY. Refer to documentation by ROMINA MEJIA.
[2019-04-13 19:23] VITALS: BP 119/44
--- NOTE | 2019-04-13 23:35 | NUR ---
PT ASSESSMENT COMPLETED AND VSS. MEDS GIVEN ORDERED AND WELL TOLERATED. CONFUSED BUT DOES ANSWER APPROPRIATELY AT TIMES. FALL PRECAUTIONS IN PLACE. VOIDING MODERATE AMOUNT OF YELLOW URINE. SLEEPING AT THIS TIME. WILL CONTINUE TO MONITOR FREQUENTLY.
[2019-04-14 08:59] VITALS: BP 123/56
--- NOTE | 2019-04-14 13:04 | NUR ---
ASSUMED CARES AT 0700. PT ORIENTED TO SELF AND PLACE, CONFUSED, FORGETFUL AND IMPULSIVE. C/O BACK PAIN 6-810, HYDROCODONE ADMINISTERED Q4H NEEDED, LIDOCAINE PATCH ADMIN, PT REFUSED VOLTAREN CREAM. VITALS REMAIN STABLE. SKIN REMAINS INTACT. PT UP WITH 1 MIN ASSIST PIVOT TRANSFERS AND TOLERATED WELL. PT VOIDING PER URINAL (PREFERS TO USE WATER PITCHER SINCE IT HAS A BIGGER OPENING), SOME SPILLING OF URINE NOTED. TOLERATED ALL THERAPIES WELL. Q1H VISUAL CHECKS. CALL LIGHT WITHIN REACH. FALL PRECAUTIONS IN PLACE
[2019-04-14 19:50] VITALS: BP 124/57
--- NOTE | 2019-04-15 01:29 | NUR ---
PT ALERT AND ORIENTED X 2. TRANSFERRED FROM CHAIR TO BED AT HS WITH PIVOT ASSIST X 1. PT DENIES PAIN OR DISCOMFORT. TRAZADONE GIVEN AT HS FOR SLEEP. BED ALARM ON FOR SAFETY. PT APPEARS TO BE SLEEPING ON HOURLY ROUNDS.
[2019-04-15 08:48] VITALS: BP 137/70
[2019-04-15 19:08] VITALS: BP 126/44
--- NOTE | 2019-04-15 20:02 | NUR ---
ASSUMED CARE AT APPROX 0715. PATIENT A/O X4, FORGETFUL AT TIMES, NEEDING CUES FOR SAFETY. C/O BACK PAIN. LIDODERM PATCH APPLIED. PATIENT REFUSED VOLTAREN GEL. PATIENT PARTICIPATED IN THERAPY. FALL PRECAUTIONS IN PLACE. IMPULSIVE X1 THIS DATE AFTER LUNCH, PATIENT REORIENTED TO FALL PRECAUTIONS/SAFETY. MEDS GIVEN PER ORDERS. PATIENT RESTING IN RECLINER. FAMILY AT BEDSIDE.
--- NOTE | 2019-04-15 22:32 | NUR ---
ASSUMED CARE OF THE PT AT 191 PM. THE PT WAS SITTING IN THE CHAIR WITH HIS FAMILY THIS PM. ALERT ET ORIENTED X 2. VERY IMPULSIVE. TOOK HIS MEDICATION WITHOUT ANY DIFFICULTY. TAKES THEM WHOLE. HEART RATE REGULAR. LUNGS CLEAR BILATERALLY, RESP., EVEN, AND UNLABORED. +BS HEARD IN ALL 4 QUADRANTS. ABD SOFT ET NONTENDOER. +PP BILATERALLY. CALL LIGHT WITHIN REACH.
[2019-04-16 09:26] VITALS: BP 143/55
--- NOTE | 2019-04-16 11:32 | NUR ---
ASSUMED CARE AT APPROX 0715. PATIENT A/O X3, FORGETFUL. IMPULSIVE AT TIMES. INCONTINENT OF URINE THIS AM. SHOWERED WITH OT. C/O BACK PAIN, PAIN MEDS GIVEN PRIOR TO THERAPY, LIDOCAINE PATCH APPLIED AFTER SHOWER. OUT TO TABLES FOR MEALS. ASSIT X1 PIVOT TO WC. URINAL AT BEDSIDE. FALL PRECAUTIONS IN PLACE. WILL CONTINUE TO MONITOR.
[2019-04-16 21:02] VITALS: BP 140/57
--- NOTE | 2019-04-17 04:01 | NUR ---
SLEEPING WELL SINCE GIVEN HTDROCODONE AT HS. USING URINAL CUP WITH MINOR SPILLS. APPRECIATES GETTING CLEANED UP AND HAVING A FRESH PAD UNDER HIM.
[2019-04-17 07:50] VITALS: BP 140/65
--- NOTE | 2019-04-17 12:06 | NUR ---
ASSUMED CARE OF PT AT 0715. PT IS A&OX4. IS ON ROOM AIR. IS UP WITH WITH 1 ASSIST, GB, WALKER MAX ASSIST. FALL PRECAUTIONS & HOURLY ROUNDING MAINTAINED. PT IS ABLE TO TURN SELF IN BED. VOIDS IN WATER MUG INSTEAD OF URINAL. NOC NURSE REPORTED THE PT IS ABLE TO VOID BETTER IN MUG INSTEAD OF URINAL. PT REPORTS CHRONIC BACK PAIN THAT IS BEING MANAGED WITH PAIN MEDS. PT HAS A DAILY AM ACCU CHECK WITHOUT SS INSULIN. PT IS CURRENTLY IN ROOM EATING LUNCH. REFUSED TO COME OUT TO DINNING ROOM. CALL LIGHT WITHIN REACH. ACROSS FROM NURSES' STATION. WILL CONTINUE TO MONITOR.
[2019-04-17 21:06] VITALS: BP 139/55
--- NOTE | 2019-04-18 02:14 | NUR ---
UNABLE TO TAKE STEPS WITH WALKER AND GAIT BELT. STAND PIVOT TO WC, AND FROM WC TO TOILET USING GRAB BARS. NEEDED HELP PULLING DOWN SHORTS. ATTEMPT TO HAVE A BM WAS UNSUCCESSFUL. VOIDED WHILE UP TO TOILET, OTHERWISE HAS BEEN USING MUG URINAL APPROX 100 ML AT A TIME. PLEASANT AND APPRECIATES PAIN MED FOR CHRONIC BACK PAIN GIVEN AT HS. TURNING SELF, PREFERS RIGHT SIDE IF ONLY BECAUSE HE FINDS IT EASIER TO VOID IN THAT DIRECTION
[2019-04-18 04:15] LABS: CALCIUM 8.8 mg/dL (8.5-10.1); CREATININE 0.7 mg/dL (0.7-1.3); POTASSIUM 4.1 mmol/L (3.5-5.1)
[2019-04-18 07:30] VITALS: BP 132/65
--- NOTE | 2019-04-18 18:06 | NUR ---
ASSUMED CARE OF PATIENT AT 0715, PATIENT ALERT AND ORIENTED X 3, BUT CAN BE FORGETFUL. PATIENT C/O PAIN WITH BACK PAIN, PATIENT RECEIVED HYDROCODONE X 1 THIS SHIFT AND LIDOCAINE PATCH APPLIED TO MID-BACK AREA. PATIENT HAS HAD PT/OT TODAY. PATIENT VOIDS PER URINAL. WILL CONTINUE TO MONITOR.
[2019-04-18 19:30] VITALS: BP 121/57
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
--- NOTE | 2019-04-19 05:49 | NUR ---
assumed care for pt. @ 1900 pt awake and in room laying in bed. family members present. alert and orientedx3 with slight confusion. evening po meds given and pt juan francisco it well. poc done, vss. lidocaine patch removed and pt slept through the night. will continue to monitor.
[2019-04-19 07:37] VITALS: BP 120/51
--- NOTE | 2019-04-19 13:12 | NUR ---
team meeting, recommendation: dc 04/26/19 home with hh (pt, ot, and nursing), family training to see how pt is walking possible thursday. will cont following as needed for dc needs.
[2019-04-19 19:26] VITALS: BP 125/54
--- NOTE | 2019-04-19 20:05 | NUR ---
assumed care at approx 0715. patient a/o x2. forgetful at times. vss. c/o back pain. medicated for pain prn. mod a transfers. accucheck am only. lidocaine patch to mid back placed. urinal at bedside, discussed timed voiding with at bedside. fall precautions in place. resting in bed at change of shift.
--- NOTE | 2019-04-20 03:44 | NUR ---
APPRECIATES HYDROCODONE FOR CHRONIC BACK PAIN. PATIENT ENCOURAGED TO VOID EVERY 2 HOURS FOR APPROX 100 ML EACH TIME PLUS 2 SMALL VOIDS "PRN" TURNED TO LEFT SIDE, PREFERS LYING ON HIS RIGHT SIDE
[2019-04-20 07:30] VITALS: BP 137/73
--- NOTE | 2019-04-20 13:55 | NUR ---
PT A&OX4, FORGETFUL AT TIMES. AMBULATES WITH ASSSIST X1 AND WALKER.USES A MUG FOR URINAL, HAS SOME DIFFICULTY SWALLOWING WHOLE PILLS. SPEECH THERAPY PLANNING A SWALLOW STUDY. DENIES ANY PAIN AT HIS TIME. WILL CONT POC.
--- NOTE | 2019-04-20 14:02 | NUR ---
PT A&OX4, FORGETFUL AT TIMES. AMBULATES WITH ASSIST X1 AND WALKER. USES A MUG FOR A URINAL. C/O BACK PAIN AT 5/10 TOLERATING PAIN MED WELL. CALL LIGHT W/I REACH, CHAIR ALARM ON. WILL CONT POC.
--- NOTE | 2019-04-20 14:05 | NUR ---
Patient participated in community reintegration on 04/20/19 with Physical Therapy. Refer to documentation by PT.
--- NOTE | 2019-04-20 14:45 | NUR ---
FAXED REFERRAL TO [facility] ([facility]) SPOKE WITH ZANDRA IN ADM SHE RECEIVED REFERRAL AND WILL REVIEW. DCP TO FOLLOW.
--- NOTE | 2019-04-20 15:15 | NUR ---
Patient participated in community reintegration on 04/20/19 with PHYSICAL THERAPY. Refer to documentation by PTA. NATE
[2019-04-20 15:34] VITALS: BP 137/73
[2019-04-20 15:35] VITALS: BP 137/73
[2019-04-20 19:06] VITALS: BP 149/79
--- NOTE | 2019-04-21 02:23 | NUR ---
STATES UNABLE TO HOLD URINE LONG 2 HOURS, IS VOIDING SMALL AMOUNT HOURLY OR MORE OFTEN USING MUG A URINAL. ON RIGHT SIDE, DOES NOT TOLERATE TURN TO LEFT DUE TO BACK PAIN EVEN AFTER GIVEN HYDROCODONE. WET CLOTHING REMOVED AND CHANGED TO HOSPITAL GOWN DESPITE HIS PROTEST THAT 'PEOPLE JUST WON'T LEAVE ME ALONE'
[2019-04-21 08:38] VITALS: BP 109/37
--- NOTE | 2019-04-21 12:46 | NUR ---
Nutrition: pt admit to rehab unit with CVA and seen for LOS. Chart reviewed. Nsg reports pt refused lunch today due to headache. Sleeping at time of visit after medication administration. Otherwise intake is documented as good, 90-100% of meals on carb controlled diet. BG 154-176. No recent weight loss per records. BMI WNL. Consider low nutrition risk.
--- NOTE | 2019-04-21 13:17 | NUR ---
ASSUMED CARES AT 0700. PT ORIENTED TO SELF AND PLACE SOMETIMES SITUATION. CONFUSED AND IMPULSIVE. C/O HEADACHE AND LOW BACK PAIN, HYDROCODONE ADMINISTERED ORDERED. BP LOW THIS AM, PT ENCOURAGED TO INCREASE FLUID INTAKE. PT REFUSED PT AND LUNCH STATING THAT HE HAD A HEADACHE AND WASN'T TOO HUNGRY. SKIN REMAINS DRY AND INTACT. PT UP WITH MIN ASSIST, GAITBELT AND WALKER AND TOLERATED WELL. VOIDING PER URINAL, CLEAR, LIGHT YELLOW URINE. CALL LIGHT WITHIN REACH. Q1H VISUAL CHECKS. FALL PRECAUTIONS IN PLACE
[2019-04-21 17:17] VITALS: BP 130/58
[2019-04-21 19:21] VITALS: BP 109/45
--- NOTE | 2019-04-22 02:53 | NUR ---
assumed care at approx 1900 evening 04/21. pt lying in bed with head of bed elevated at change of shift. spouse at bedside. pt voiding in cup per his request. pt given hs meds tolerating well. pt appears to be sleeping soundly with hourly rounding checks. bed alarm on and call light in reach. will continue to monitor.
[2019-04-22 07:30] VITALS: BP 121/36
--- NOTE | 2019-04-22 10:18 | NUR ---
ASSUMED CARE AT 0700. PATIENT IS ALERT AND ORIENTED X2. PATIENT HAS RIGHT SIDED WEAKNESS. PATIENT LUNGS ARE CLEAR AND DEMINISHED. ABD IS SOFT WITH BSX4. UP WITH ASSIST OF 1 STAFF AND GAIT BELT TO THE DINING ROOM FOR MEALS. FALL AND SAFETY PROTOCOLS IN PLACE. C/O PAIN IN HIS LOWER BACK. PRN PAIN MED GIVEN PER REQUEST. LIDOCAINE PATCH APPLIED TO HIS LOWER BACK. PATIENT CONTINUES TO PROGRESS TOWARDS D/C GOALS. WILL CONTINUE TO MONITER.
[2019-04-22 20:00] VITALS: BP 104/34
--- NOTE | 2019-04-23 02:35 | NUR ---
assumed care at approx 1900 evening 04/22. pt lying in bed with head of bed elevated resting and visiting with spouse at bedside. pt voiding in cup per his request. pt given pain pill at change of shift and appears to be sleeping soundly with hourly rounding checks. bed alarm on and call light in reach. will continue to monitor.
[2019-04-23 07:25] VITALS: BP 121/50
--- NOTE | 2019-04-23 10:23 | NUR ---
ASSUMED CARES AT 0700. PT SLEEPY, ORIENTED TO PERSON AND SITUATION ONLY. C/O LOW BACK PAIN, PAIN MEDICATION ADMINISTERED NEEDED. PT REMAINS IMPULSIVE, BED/CHAIR ALARMS IN PLACE. VITALS REMAIN STABLE. PT VOIDING PER URINAL (PITCHER) SMALL AMOUNTS AT A TIME, SPILLAGE OF URINE AND INCONTINENCE NOTED. UP WITH 1 MIN ASSIST, PIVOT TRANSFERS AND TOLERATES WELL. Q1H VISUAL CHECKS. CALL LIGHT WITHIN REACH. FALL PRECAUTIONS IN PLACE
[2019-04-23 19:50] VITALS: BP 116/37
--- NOTE | 2019-04-24 03:18 | NUR ---
PATIENT RESTING ON RIGHT SIDE. HAS BILATERAL WEAKNESS TO LOWER EXTREMITIES. ALERT X 2. HAS PEROIDS OF BEING IMPULSIVE. ALSO HAS BACK PAIN,. TAKES MEDS FOR THIS. WITH SOME RELIEF. TAKES DIET WELL. UP WITH 1 PERSON ASSIST TO CHAIR. TURNS SELF BUT ONLY LIKES TO LAY ON RIGHT SIDE. VOIDS ALOT IN CONTAINERS. LIDADERM PATCH REMOVED ORDERED. NO IV. VS STANBLE. LUNGS CTA-DSIM. NO EDEMA NOTED. STANDS AND PIVOTS TO CHAIR. REMAINS IMPULSIVE AT TIMES. SLEPT WELL. CONT PLAN OF CARE. IS INCONT FROM DRIBBLING AT TIMES AFTER MISSING URINAL.
[2019-04-24 07:30] VITALS: BP 127/68
--- NOTE | 2019-04-24 17:41 | NUR ---
ASSUMED CARE OF PT AT 0715. PT IS A&OX TO SELF & SITUATION. REPORTS CHRONINC MID BACK PAIN THAT IS BEING MANAGED WITH PAIN MEDS & OTHER THERAPUETIC TECHNIQUES. LIODCAINE PATCH IN PLACE. PT IS STABLE. IS ON ROOM AIR. VOIDS MUG & GRADUATE. DISLIKES USING URINAL. IS UP WITH 1 ASSIST, GB, WALKER. IS TURNED Q2H, BUT REFUSES. PT IS ABLE TO TURN, BUT FAVORS THE RIGHT SIDE. HAS BEEN UP IN W/C FOR ALL MEALS TODAY. LABS & VITALS REVIEWED. IS CURRENTLY EATING DINNER WITH FAMILY AT SIDE. WILL CONTINUE TO [facility].
[2019-04-24 19:04] VITALS: BP 108/40
--- NOTE | 2019-04-25 01:24 | NUR ---
ASSESSMENT: PT REMAIN ALERT AND ORIENT TIMES THREE, FLAT AFFECT. WAS AT THE BEDSIDE AT THE BEGINNING OF THE SHIFT. C/O BACK PAIN, NORCO GIVEN WITH PARTIAL RELIEF. LIDOCAINE PATCH WAS REMOVED. VSS, AFEBRILE. PT FAVORS RIGHT SIDE, AND NAVIGATES BACK TO RIGHT SIDE, WHEN TURNED TO THE LEFT. SLOW PROGRESS TOWARDS DC GOALS,. WILL CONTINUE TO MONITOR.
[2019-04-25 07:45] VITALS: BP 130/57
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
--- NOTE | 2019-04-25 18:11 | NUR ---
THIS AM PT C/O BACK PAIN AND WAS TREATED WITH HYDROCODONE WITH GOOD RELIEF OF PAIN. PT ALSO HAS LIDOCAINE PATCH, PLACED AFTER BATHING THIS AM. NO CONCERNS VOICED THIS AM, AND PT ATTENDED THERAPIES. FAMILY CAME IN FOR TRAINING TODAY AND PHYSICAL THERAPIST TO FOLLOW UP WITH THEM REGARDING STAIRS AND CAR TRANSFERS FOR TOMORROW THEIR TIME TODAY WAS LIMITED. PT IS FOR DC TOMORROW IF MEDICALLY CLEARED.
[2019-04-25 21:14] VITALS: BP 116/49
--- NOTE | 2019-04-26 05:16 | NUR ---
Pt. rested quietly at intervals during the night when checked on during frequent rounds. Pt. c/o some back discomfort and was repositioned for comfort. Bed alarm is on.
[2019-04-26] MEDS ORDERED: ASA5UEC PO (06:58)
[2019-04-26 07:30] VITALS: BP 115/49
[2019-04-26 09:30] VITALS: BP 137/73
--- NOTE | 2019-04-26 12:51 | NUR ---
FAXED DC ORDERS/SUMMARY TO [facility] SPOKE WITH LIZETT IN ADM SHE RECEIVED DC ORDERS AND WILL NOTIFY PT TIME OF VISITS.
[2019-04-26 13:55] VITALS: BP 137/73
--- NOTE | 2019-04-26 14:46 | NUR ---
ASSUMED CARE AT APPROX 0715. PATIENT ALERT. ORIENTED TO PERSON AND SITUATION. FLAT AFFECT. VSS. C/O BACK PAIN. LIDOCAINE PATCH APPLIED, HYDROCODONE ADMINISTERED THIS AM. VOIDS PER URINAL, STAFF EMPTIES. UP X1 ASSIST PIVOT TX TO WC. FALL PRECAUTIONS IN PLACE. DR. OLIVARES ROUNDED ON PATIENT. MED ORDERS RECEIVED. PRESCRIPTIONS E-SCRIBED TO [facility]S [facility], PER DR. OLIVARES. HYDROCODONE SCRIPT LEFT AT HIS OFFICE FOR TO GIFT OFFICER ON WAY OUT AFTER DC FROM 5N, PATIENT AND HIS AWARE. REVIEWED D/C SUMMARY AND MED ORDERS WITH PATIENT AND HIS . EDUCATION PROVIDED REGARDING PRESCRIPTIONS AND DIAGNOSES. PATIENT LEFT UNIT WITH FAMILY APPROX 1420.
== END 2019-04-26 14:51 | disposition home health service (06) | DRG 56 ==
PROVIDERS: Family Medicine; ADMIT Physical Medicine & Rehabilitation
DX: I69.351 Hemiplegia and hemiparesis following cerebral infarction affecting right dominant side (principal); I63.9 Cerebral infarction, unspecified; R47.01 Aphasia; R41.82 Altered mental status, unspecified; R53.1 Weakness; K21.9 Gastro-esophageal reflux disease without esophagitis; E11.9 Type 2 diabetes mellitus without complications; G47.00 Insomnia, unspecified; F32.9 Major depressive disorder, single episode, unspecified; R35.0 Frequency of micturition; K59.00 Constipation, unspecified; F03.90 Unspecified dementia, unspecified severity, without behavioral disturbance, psychotic disturbance, mood disturbance, and anxiety; M17.0 Bilateral primary osteoarthritis of knee; Z99.3 Dependence on wheelchair; Z90.49 Acquired absence of other specified parts of digestive tract; Z79.899 Other long term (current) drug therapy; I69.320 Aphasia following cerebral infarction
CPT/HCPCS: 10112